=== PATIENT | male | born 1985 | race Hispanic/Latino ===

== ENCOUNTER 2021-12-15 08:55 | Emergency (ER) | payer SELFPAY ==
[2021-12-15] MEDS ORDERED: ALBUTEROL 2.5 MG/3 ML NEBU IH NR (09:05)
[2021-12-15] MEDS ORDERED: IPRATROPIUM 0.02% NEBU 2.5 ML IH NR (09:05)
--- NOTE | 2021-12-15 09:31 | XRay Report ---
XR chest 1V ap INDICATION / CLINICAL INFORMATION: Dyspnea. COMPARISON: None available. FINDINGS: SUPPORT DEVICES: None. HEART /PULMONARY VASCULATURE: No significant abnormality. LUNGS / PLEURA: No significant pulmonary or pleural abnormality. No pneumothorax. ADDITIONAL FINDINGS: No significant additional findings. IMPRESSION: 1. No acute findings. Signer Name: Mansoor Chakraborty MD Signed: 12/15/2021 9:26 AM Workstation Name: [id number]
[2021-12-15] MEDS ORDERED: ALBUTEROL 2.5 MG/3 ML NEBU IH ONE (09:33)
[2021-12-15] MEDS ORDERED: SODIUM CHLORIDE 0.9% 1000 ML 1,000 ML IV ONE (10:00)
[2021-12-15 10:13] LABS: INR 0.92 (0.87-1.13)
[2021-12-15 10:37] LABS: BUN/Creatinine Ratio TNR; Blood Urea Nitrogen TNR mg/dL (9-20)
[2021-12-15 10:39] LABS: Alanine Aminotransferase TNR units/L (7-56); Calcium TNR mg/dL (8.4-10.2); Creatine Kinase MB TNR ng/mL (0.0-4.0)
[2021-12-15 10:40] LABS: Albumin TNR g/dL (3.9-5); Hemolysis Index TNR
[2021-12-15 11:36] LABS: Bacteria,Urine 1+ /HPF (Negative); Mucus,Urine FEW /HPF
[2021-12-15 11:40] LABS: Bilirubin,Urine Negative (Negative); WBC,Urine < 1.0 /HPF (0.0-6.0)
[2021-12-15 11:41] LABS: Blood,Urine Negative (Negative); Color,Urine Straw (Yellow); PH,Urine 5.5 (5.0-7.0); Protein,Urine <15 mg/dL mg/dL (Negative); Urobilinogen,Urine < 2.0 mg/dL (<2.0)
[2021-12-15 11:53] LABS: Eosinophils % (Auto) 0.3 % (0.0-4.3); Hematocrit 45.4 % (35.5-45.6); Hemoglobin 15.3 gm/dl (11.8-15.2); Lymphocytes % (Auto) 7.7 % (13.4-35.0); Mean Corpuscular HGB Conc 34 % (32-34); Mean Corpuscular Volume 96 fl (84-94); Mean Platelet Volume 8.5 fl (6-12); Monocytes % (Auto) 7.4 % (0.0-7.3); Platelet Count 237 K/mm3 (140-440); Red Blood Count 4.71 M/mm3 (3.65-5.03); Red Cell Distribution Width 13.7 % (13.2-15.2)
[2021-12-15 11:54] LABS: Basophils # (Auto) 0.1 K/mm3 (0.0-0.1); Basophils % (Auto) 0.4 % (0.0-1.8); Lymphocytes # (Auto) 1.1 K/mm3 (1.2-5.4); Monocytes # (Auto) 1.1 K/mm3 (0.0-0.8)
[2021-12-15 11:58] LABS: Amphetamine Screen,Urine Negative; Benzodiazepines Screen,Urine Negative; Cocaine Screen,Urine Negative; Methadone Screen,Urine Negative; Opiate Screen,Urine Negative
[2021-12-15 12:02] LABS: Alanine Aminotransferase 18 units/L (7-56); Albumin 4.4 g/dL (3.9-5); Blood Urea Nitrogen 8 mg/dL (9-20); Calcium 9.5 mg/dL (8.4-10.2); Hemolysis Index 11
[2021-12-15 12:05] LABS: BUN/Creatinine Ratio 11; Creatine Kinase MB < 1.0 ng/mL (0.0-4.0)
[2021-12-15 12:27] LABS: Cannabinoid Screen,Urine Positive
--- NOTE | 2021-12-15 13:10 | Cat Scan Report ---
CTA CHEST WITH CONTRAST INDICATION / CLINICAL INFORMATION: SOB. TECHNIQUE: Axial CT images were obtained through the chest after injection of 100 cc of Omnipaque 350 IV contrast. 3 plane MIP and/or 3D reconstructions were produced. All CT scans at this location are performed using CT dose reduction for ALARA by means of automated exposure control. COMPARISON: None available. FINDINGS: PULMONARY EMBOLUS: Contrast bolus is slightly limited with most of the IV contrast in the systemic ci rculation. However, there is at least one convincing occlusive emboli in an interlobar artery extendi ng to the right lower lobe. A few smaller emboli in subsegmental arteries leading to the left lower l obe and inferior lingula are suspected as well. THORACIC AORTA: No significant abnormality. HEART: No significant abnormality. No convincing findings of right heart strain. CORONARY ARTERY CALCIFICATION: Absent -- None. MEDIASTINUM / TREVIN: No significant abnormality. PLEURA: No pleural effusion. No pneumothorax. LUNGS: There is a moderate size area of infiltration in the posterior right lower lobe measuring up t o 9.9 x 5.1 cm in axial plane which is likely related to the right lower lobe pulmonary embolus. Othe rwise the lungs are clear. No significant parenchymal disease or suspicious nodule. Azygos lobe is no kaveh. ADDITIONAL FINDINGS: None. UPPER ABDOMEN: No acute findings. SKELETAL STRUCTURES: No significant osseous abnormality. IMPRESSION: 1. Positive for pulmonary emboli as described above. 2. Moderate size area of infiltration in the right lower lobe likely related to the pulmonary embolus . If fever is present, pneumonia could also be considered. CRITICAL RESULT: Time of Discovery (VALET ATTENDANT/CDT): 1203 hours Time of Communication (VALET ATTENDANT/CDT): 1205 hours Licensed Practitioner Receiving Report: Dr. Cruz Read-Back Performed: Yes. Signer Name: Roque Toledo Jr, MD Signed: 12/15/2021 1:06 PM Workstation Name: [id number]
[2021-12-15 13:20] VITALS: BP 121/69
--- NOTE | 2021-12-15 13:50 | Emergency Department Report ---
ED General Adult HPI - General Chief complaint: Dyspnea/Respdistress Stated complaint: SOB PUI?: No Time Seen by Provider: 12/15/21 09:05 Source: patient, EMS Mode of arrival: Stretcher Limitations: No Limitations - History of Present Illness Initial comments: PT ARRIVING FROM [facility] FOR SOB. POSSIBLY PULLED MUSCLE. DENIES INJURIES. pt has WPW s/p ablation, smoker , -: Gradual, hour(s) Location: chest Radiation: non-radiation Consistency: constant Improves with: none Worsens with: none Associated Symptoms: shortness of breath. denies: denies other symptoms, confusion, chest pain Treatments Prior to Arrival: none - Related Data Previous Rx's Medication Instructions Recorded Last Taken Type Rivaroxaban [Xarelto Starter Pack] 1 each PO BID #42 12/15/21 Unknown Rx Allergies Allergy/AdvReac Type Severity Reaction Status Date / Time No Known Allergies Allergy Unverified 12/15/21 09:30 ED Review of Systems ROS: Stated complaint: SOB Other details as noted in HPI Constitutional: denies: chills, fever Eyes: denies: eye pain, eye discharge, vision change ENT: denies: ear pain, throat pain Respiratory: denies: cough, shortness of breath, wheezing Cardiovascular: denies: chest pain, palpitations Endocrine: no symptoms reported Gastrointestinal: denies: abdominal pain, nausea, diarrhea Genitourinary: denies: urgency, dysuria Musculoskeletal: denies: back pain, joint swelling, arthralgia Skin: denies: rash, lesions Neurological: denies: headache, weakness, paresthesias Psychiatric: denies: anxiety, depression Hematological/Lymphatic: denies: easy bleeding, easy bruising ED Past Medical Hx - Past Medical History Previous Medical History?: No Hx Hypertension: No - Social History Smoking Status: Never Smoker - Medications Home Medications: Home Medications Medication Instructions Recorded Confirmed Last Taken Type Rivaroxaban [Xarelto Starter Pack] 1 each PO BID #42 12/15/21 Unknown Rx ED Physical Exam - General Limitations: No Limitations General appearance: alert, anxious - Head Head exam: Present: atraumatic, normocephalic - Eye Eye exam: Present: normal appearance - ENT ENT exam: Present: mucous membranes moist - Neck Neck exam: Present: normal inspection - Respiratory Respiratory exam: Present: normal lung sounds bilaterally. Absent: respiratory distress - Cardiovascular Cardiovascular Exam: Present: regular rate, normal rhythm. Absent: systolic murmur, diastolic murmur, rubs, gallop - GI/Abdominal GI/Abdominal exam: Present: soft, normal bowel sounds - Rectal Rectal exam: Present: deferred - Extremities Exam Extremities exam: Present: normal inspection - Back Exam Back exam: Present: normal inspection - Neurological Exam Neurological exam: Present: alert, oriented X3 - Psychiatric Psychiatric exam: Present: normal affect, normal mood - Skin Skin exam: Present: warm, dry, intact, normal color. Absent: rash ED Course Vital Signs 12/15/21 12/15/21 12/15/21 08:56 09:29 09:30 Temperature 98.9 F Pulse Rate 98 H 84 89 Respiratory 18 19 13 Rate Blood Pressure 135/72 Blood Pressure 160/120 [Left] O2 Sat by Pulse 100 100 99 Oximetry 12/15/21 12/15/21 12/15/21 09:45 10:00 10:16 Temperature Pulse Rate 85 84 88 Respiratory 23 27 H 31 H Rate Blood Pressure 142/76 142/76 142/76 Blood Pressure [Left] O2 Sat by Pulse 100 99 99 Oximetry 12/15/21 12/15/21 12/15/21 10:30 10:45 11:00 Temperature Pulse Rate 89 90 90 Respiratory 13 32 H 29 H Rate Blood Pressure 142/76 134/84 134/84 Blood Pressure [Left] O2 Sat by Pulse 99 97 Oximetry 12/15/21 12/15/21 12/15/21 11:16 11:30 11:45 Temperature Pulse Rate 97 H 89 85 Respiratory 13 21 11 L Rate Blood Pressure 134/84 134/84 121/69 Blood Pressure [Left] O2 Sat by Pulse 98 99 98 Oximetry 12/15/21 12/15/21 12/15/21 12:00 12:16 12:30 Temperature Pulse Rate 82 79 80 Respiratory 28 H 13 24 Rate Blood Pressure 121/69 121/69 121/69 Blood Pressure [Left] O2 Sat by Pulse 99 98 98 Oximetry 12/15/21 12/15/21 12/15/21 12:54 13:00 13:16 Temperature Pulse Rate 89 89 89 Respiratory 20 28 H 15 Rate Blood Pressure Blood Pressure [Left] O2 Sat by Pulse 100 98 99 Oximetry ED Medical Decision Making - Lab Data Result diagrams: 12/15/21 10:43 12/15/21 10:43 - EKG Data -: EKG Interpreted by Me EKG shows normal: sinus rhythm Rate: normal - EKG Data Interpretation: LVH - Radiology Data Radiology results: report reviewed, image reviewed - Medical Decision Making work up showed right interlobar PTE , vss , not hypoxic, will strat on xarelto , fantasma fast score 2 applied , Critical care attestation.: If time is entered above; I have spent that time in minutes in the direct care of this critically ill patient, excluding procedure time. ED Disposition Clinical Impression: PTE (pulmonary thromboembolism), SOB (shortness of breath) Disposition: HOME / SELF CARE / HOMELESS Is pt being admited?: No Does the pt Need Aspirin: No Condition: Stable Instructions: Shortness of Breath, Adult, [id number], Pulmonary Embolism Prescriptions: Rivaroxaban [Xarelto Starter Pack] 1 each PO BID #42 Referrals: PRIMARY CARE, [Primary Care Provider] - 3-5 Days JOHN ALSTON MD [Staff Physician] - 3-5 Days
[2021-12-15] MEDS ORDERED: RIVAROXABAN 15 MG TAB PO SCH (15:00)
--- NOTE | 2021-12-16 18:29 | Electrocardiograph Report ---
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
== END 2021-12-15 14:31 | disposition home or self-care (01) ==
LOC: ED 08:55
DX: I26.99 Other pulmonary embolism without acute cor pulmonale (principal); Z79.899 Other long term (current) drug therapy
CPT/HCPCS: 36415; 71045; 71275; 80053; 80307; 81001; 82550; 82553; 83690; 83880; 84484; 85025; 85379; 85610; 93005; 94640; 96360; 99285; J7030; Q9967; 80320; G0480